=== PATIENT | female | born 1970 | race Caucasian/White ===

== ENCOUNTER 2020-02-20 05:59 | Outpatient (RCR) | payer OTHER ==
[~2020-02-20] VITALS: Ht 162 cm; Wt 106.0 kg
[2020-02-20] MEDS ORDERED: METF-397 PO (14:16)
[2020-02-20] MEDS ORDERED: GABA-486 PO ×2 (14:16)
[2020-02-20] MEDS ORDERED: POTA10CA43 PO (14:16)
[2020-02-20] MEDS ORDERED: SPIR1TAB3 PO (14:16)
[2020-02-20] MEDS ORDERED: ZOLM5SPR5 NS (14:16)
[2020-02-27] MEDS ORDERED: ACHD5005 PO (09:24)
== END 2020-02-23 09:17 | disposition home or self-care (01) ==
LOC: PREOP 05:59
PROVIDERS: ATTEND Podiatrist Foot & Ankle Surgery
DX: Z01.818 Encounter for other preprocedural examination (principal)

== ENCOUNTER → 2020-02-21 | Outpatient (CLI) | payer OTHER ==
[~2020-02-21] MED LIST: ACHD5005 PO; ASPI-999 PO; GABA-486 PO; METF-397 PO; POTA10CA43 PO; SPIR1TAB3 PO; ZOLM5SPR5 NS
--- NOTE | 2020-02-21 09:20 | Diagnostic Imaging Report ---
PROCEDURE: MRI lumbar spine. TECHNIQUE: Multiplanar, multisequence MRI of the lumbar spine was performed without contrast. INDICATION: Low back pain. COMPARISON: None. FINDINGS: There are 5 lumbar-type vertebral bodies for the purposes of this report. Normal alignment. Vertebral body heights are preserved. No abnormal signal in the conus which terminates at L1. Normal morphology of the cauda equina. Visualized paravertebral soft tissues and pelvis are unremarkable. Tiny right subarticular through foraminal disc protrusion at L5-S1 results in mild right lateral recess and neural foraminal narrowing. There is also mild facet arthropathy at L5-S1. The intervertebral discs are otherwise well-preserved. No high-grade neural impingement. IMPRESSION: 1. Tiny disc protrusion at L5-S1 results in mild right lateral recess and right neural foraminal narrowing. 2. Facet arthropathy bilaterally at L5-S1 may be a local pain generator. 3. No other substantial spondylotic change. No high-grade neural impingement. Dictated by: Dictated on workstation # [id number]
== END ==
LOC: RAD 08:45
PROVIDERS: ATTEND Nurse Practitioner Family
DX: M47.817 Spondylosis without myelopathy or radiculopathy, lumbosacral region (principal); M51.27 Other intervertebral disc displacement, lumbosacral region; M48.07 Spinal stenosis, lumbosacral region
CPT/HCPCS: 72148

== ENCOUNTER 2020-02-27 06:24 | Day surgery (SDC) | payer OTHER, BC ==
[2020-02-27] VITALS (10 sets, daily range): BP systolic 115–187; BP diastolic 79–111
[~2020-02-27] VITALS: Ht 162 cm; Wt 106.0 kg
[~2020-02-27 06:24] MED LIST changes: -ACHD5005 PO; -ASPI-999 PO
[2020-02-27] MEDS ORDERED: ceFAZolin INJECTION 1,000 MG in WATER (STERILE) FOR INJECTION 10 ML IV ONE (06:30)
[2020-02-27] MEDS ORDERED: LACTATED RINGERS 1,000 ML IV PRN (06:30)
[2020-02-27] MEDS ORDERED: fentaNYL INJECTION 100 MCG/2 ML AMP ONE (07:03)
[2020-02-27] MEDS ORDERED: MIDAZOLAM 2 MG/2 ML (VERSED) VIAL ONE (07:03)
[2020-02-27] MEDS ORDERED: BUPIVACAINE 0.5% 30 ML (SENSORCAINE) VIAL ONE (07:15)
[2020-02-27] MEDS ORDERED: LIDOCAINE 1% INJ 20 ML 20 ML VIAL ONE (07:15)
--- NOTE | 2020-02-27 07:47 | Progress Note-Pre Operative ---
Pre-Operative Progress Note H&P Reviewed The H&P was reviewed, patient examined and no changes noted. Date Seen by Provider: Feb 27, 2020 Time Seen by Provider: 07:47 Date H&P Reviewed: Feb 27, 2020 Time H&P Reviewed: 07:47 Pre-Operative Diagnosis: Tarsal Tunnel, right MARY LOU ALVARES DPM Feb 27, 2020 07:47
[2020-02-27] MEDS ORDERED: proPOfol 200 MG/20 ML (DIPRIVAN) VIAL IV ONE (07:59)
[2020-02-27] MEDS ORDERED: SEVOFLURANE (ULTANE) 15 ML INHAL SOLN ONE ×5 (07:59→09:16)
[2020-02-27] MEDS ORDERED: LIDOCAINE PF 2% 5 ML (XYLOCAINE) VIAL ONE (07:59)
[2020-02-27] MEDS ORDERED: ONDANSETRON 4 MG/2 ML (SDV) Z0FRAN ONE ×2 (07:59→08:37)
[2020-02-27] MEDS ORDERED: morphine INJ 10 MG/ML 1ML (SYR OR VIAL) ONE (08:09)
[2020-02-27] MEDS ORDERED: ESMOLOL 100 MG/10 ML (BREVIBLOC) VIAL ONE (08:37)
[2020-02-27] MEDS ORDERED: MEPERIDINE (DEMEROL) INJ 50 MG/ML IVP ONE (09:15)
[2020-02-27] MEDS ORDERED: ONDANSETRON 4 MG/2 ML (SDV) Z0FRAN IVP PRN (09:15)
[2020-02-27] MEDS ORDERED: morphine INJ 10 MG/ML 1ML (SYR OR VIAL) IVP ONE (09:15)
--- NOTE | 2020-02-27 09:22 | Progress Note-Post Operative ---
Post-Operative Progess Note Surgeon (s)/Health Sciences Dean (s) Surgeon MARY LOU ALVARES DPM Health Sciences Dean: none Pre-Operative Diagnosis Tarsal Tunnel, right Post-Operative Diagnosis same Procedure & Operative Findings Date of Procedure 02/27/20 Procedure Performed/Findings Tarsal Tunnel Release, right Anesthesia Type General Estimated Blood Loss Estimated blood loss (mL): Minimal Specimens/Packing Specimens Removed none MARY LOU ALVARES DPM Feb 27, 2020 09:22
[2020-02-27] MEDS ORDERED: ACHD5005 PO (09:24)
[2020-02-27] MEDS ORDERED: ASPI-999 PO (09:29)
[2020-02-27] MEDS ORDERED: HYDROcodone/APAP 5 MG/325 MG (LORTAB) TAB PO PRN (09:30)
[2020-02-27] MEDS ORDERED: LACTATED RINGERS 1,000 ML IV SCH (09:30)
[2020-02-27] MEDS ORDERED: LABETALOL HCL 100 MG/20 ML VIAL IV ONE (09:45)
[2020-02-27] MEDS: LABETALOL HCL 20 MG/4 ML VIAL ONE ×2 (09:48→09:49)
--- NOTE | 2020-02-27 10:24 | Anesthesia-General Post-Op ---
General Patient Condition Mental Status/LOC: Same as Preop Cardiovascular: Satisfactory Nausea/Vomiting: Absent Respiratory: Satisfactory Pain: Controlled Complications: Absent Post Op Complications Complications None Follow Up Care/Instructions Patient Instructions None needed. Anesthesia/Patient Condition Patient Condition Patient is doing well, no complaints, stable vital signs, no apparent adverse anesthesia problems. No complications reported per nursing. RAZIA MAGAÑA CRNA Feb 27, 2020 10:24
--- NOTE | 2020-02-27 11:55 | Physical Therapy Ortho Eval ---
PT Orthopedic Evaluation Type of Surgery Tarsal tunnel right. Prior Level of Function Current Living Status: Alone (has family support) Locomotion (Upon Admit): Independent Established Durable Medical Eq: Crutches knee scooter; pt is purchasing a FWW today as well. Subjective Subjective Agrees to PT. Reports she will have help to get into her house. 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 Reports she has crutches and a knee scooter, but thinks she wants a walker as well as she feels safer using it. Entry Into Home: Stairs Without Railing (she can brace the house on one side) Steps Into Home: 2 Motor Control Motor Control: Motor Control WNL ROM ROM: WFL Transfer SCALE: Activities may be completed with or without assistive devices. 7-Kkcxtaomhq-xqdkiht completes the activity by him/herself with no assistance from a helper. 5-Set-up or Clean-up Assistance-helper sets up or cleans up; patient completes activity. [place] assists only prior to or following the activity. 4-Supervision or Touching Assistance-helper provides verbal cues and/or touching/steadying and/or contact guard assistance as patient completes activity. Assistance may be provided throughout the activity or intermittently. 3-Partial/Moderate Assistance-helper does LESS THAN HALF the effort. [place] lifts, holds or supports trunk or limbs, but provides less than half the effort. 2-Substantial/Maximal Assistance-helper does MORE THAN HALF the effort. [place] lifts or holds trunk or limbs and provides more than half the effort. 2-Ogjenixts-eeblfj does ALL the effort. Patient does none of the effort to complete the activity. Or, the assistance of 2 or more helpers is required for the patient to complete the activity. If activity was not attempted, code reason: 7-Patient Refused. 9-Not Applicable-not attempted and the patient did not perform the activity before the current illness, exacerbation or injury. 10-Not Attempted due to Environmental Limitations-(lack of equipment, weather restraints, etc.). 88-Not Attempted due to Medical Conditions or Safety Concerns. Transfers (B, C, W/C) (QC): 5 (6 post eval) Gait Gait Assistive Device: FWW (Trainig with FWW), Crutches (training with cru tches. ) Right Lower Extremity: Right Weight Bearing Status RLE: Non Weight Bearing Left Lower Extremity: Left Weight Bearing Status LLE: Full Weight Bearing Gait (QC): 4 Distance (QC): 3=150 ft Summary/Comments Gait training with crutches initially, pt able to hop forward with CGA but unsteady with turning and requires min assist with one episode of LOB with rigid assist to recover. FWW training NWB right with SB to CGA. Pt is more steady with walker and able to hop up/down a curb step with the FWW with SB to CGA with skilled cues for technique. Unsteady at times, but feel she is able to safely manage gait using the walker short distances and the knee scooter other distances. Treatment Rendered Treatment: Gait Train, Step Train Pt demonstrated correct performance on level surfaces with turns and on a step using the FWW. Slightly unsteady but able to compensate. Assessment/Goals Goal Time Frame: 1 Visit Plan Treatment Plan: Discharge PT/Family Agrees to Plan: Yes Time Time In: 1050 Time Out: 1118 Total Billed Treatment Time: 28 Billed Treatment Time visit EVL 28 LEIDY CAMERON PT Feb 27, 2020 11:55
--- NOTE | 2020-02-27 21:03 | OPERATIVE REPORT ---
DATE OF SERVICE: 02/27/2020 SURGEON: Sharon Alvares DPM PREOPERATIVE DIAGNOSIS: Tarsal tunnel syndrome, right. POSTOPERATIVE DIAGNOSIS: Tarsal tunnel syndrome, right. PROCEDURE: Tarsal tunnel release, right. WOUND CLASS: Clean. ANESTHESIA: General. HEMOSTASIS: Pneumatic thigh tourniquet at 300 mmHg. INDICATIONS: This 49-year-old female presents complaining of painful foot and ankle, right worse than left. The pain is exacerbated by shoe gear and ambulation. Conservative treatment has met with unsatisfactory results and the patient is agreeable to surgical intervention after risks and complications were discussed at length. No guarantees were extended to the patient and she is willing to proceed. DESCRIPTION OF PROCEDURE: The patient was brought back to the operating table, placed in secure supine position. A general anesthetic was then induced. Appropriate timeout was performed. The right foot and ankle were then prepped and draped in the normal sterile manner. The right foot was then elevated, allowed to exsanguinate after which the tourniquet was inflated to 300 mmHg. Attention was then directed to the proximal tarsal tunnel where a preoperative injection of 5 mL of 0.5% Marcaine was injected with great care not to inject into any blood vessels. The anatomy was marked and the incision was made along the posterior aspect of the medial malleolus on the right. The incision was approximately 8 cm in length. The incision began proximal to the flexor retinaculum and extended down into the medial arch area. The incision was deepened in the same plane with great care to identify and retract all vital neurovascular structures. Only the necessary superficial venous structures were cauterized as encountered. The incision was bluntly performed down to the deep fascia where the flexor retinaculum was identified at its most proximal aspect. Careful tenting was performed to protect the underlying neurovascular structures. The tarsal tunnel was released from the most proximal portion posterior to the medial malleolus extending all the way down to the abductor hallucis muscle belly. The venae comitantes were quite tortuous throughout the tarsal tunnel. The medial and lateral plantar nerves were identified and digital dilation performed to ensure that they had no restrictive structures that were deep to the abductor hallucis muscle belly. The tourniquet was released and there was no pulsatile bleeding. Just small blood vessels were identified and were cauterized. One of the vena comitantes had some micro bleeding that was not stop by electrocautery. 0 Vicryl was utilized to tie off the contributing venous structure. No significant bleeding was identified at this time and the area was flushed with copious amounts of normal saline. Closure was then performed in layers. Subcutaneous tissue was approximated utilizing 4-0 Vicryl, skin closure was performed with 4-0 Prolene in a horizontal mattress type stitch. Postoperative injection consisted of 11 mL of 0.5% Marcaine injected in local infusion to the surgical site followed by 10 mg of dexamethasone. Dressing consisted of Betadine soaked Adaptic, sterile 4 x 4's, sterile Kerlix, ABDs, soft roll, posterior splint secured with William wraps. The patient tolerated the anesthesia and procedure well and was transported from the operating room to the recovery area with vital signs stable and vascular status intact to all digits of the right foot. The patient is to be nonweightbearing right lower extremity and to follow up in the office in 10 days' period of time or sooner if necessary. Job ID: [id number] DocumentID: [id number] Dictated Date: 02/27/2020 09:44:45 Mingle Operator Date: 02/27/2020 21:03:03 Dictated By: SHARON ALVARES DPM
== END 2020-02-27 11:30 | disposition home or self-care (01) ==
LOC: SDC 06:24
PROVIDERS: ATTEND Podiatrist Foot & Ankle Surgery
DX: G57.51 Tarsal tunnel syndrome, right lower limb (principal); I10 Essential (primary) hypertension; E11.9 Type 2 diabetes mellitus without complications; E11.69 Type 2 diabetes mellitus with other specified complication; G43.909 Migraine, unspecified, not intractable, without status migrainosus; E66.01 Morbid (severe) obesity due to excess calories; Z68.41 Body mass index [BMI] 40.0-44.9, adult; Z79.4 Long term (current) use of insulin; Z79.899 Other long term (current) drug therapy; Z88.8 Allergy status to other drugs, medicaments and biological substances
CPT/HCPCS: 82962; 87081